=== PATIENT | male | born 1950 | race African-American/Black ===

== ENCOUNTER → 2016-05-19 | Outpatient (CLI) | payer OTHER ==
[~2016-05-19] MED LIST: ASPIRIN 81M81 MG/TA2 PO; BYSTOLIC10 MG PO; FLONASE NASAL S16 GM NS; HYGROTON50 MG PO; HYTRIN 2MG CAPSU2 MG PO; LANTUS SOLOS100 U/ML SQ; LIPITOR 40MG TA40 MG PO; LIPITOR20 MG PO; LOTREL 10 MG-401 CAP PO; MICARDIS HCT 121 TA1 PO; NATURE'S BLEN2000 IU PO; NOVOLOG FLEX100 U/ML SQ; PROAIR HFA0.09 MG/AC IH; TESSALON P100 MG/CAP PO; TRICOR145 MG PO; ULTRAM 50MG TAB50 MG PO; VITAMIN D 50,1.25 MG PO; ZOLOFT 50MG50 MG PO; ZYRTEC 10MG10 MG PO
== END ==
LOC: COL.PUL 11:20
DX: R06.02 Shortness of breath (principal)

== ENCOUNTER → 2016-06-18 | Outpatient (CLI) | payer OTHER | LOC: COL.PUL 10:07 | DX: R06.02 Shortness of breath (principal) | CPT/HCPCS: J7674 ==

== ENCOUNTER 2016-08-10 07:24 | Day surgery (SDC) | payer OTHER ==
[~2016-08-10] VITALS: Ht 182.9 cm; Wt 120.3 kg
[2016-08-10] MEDS ORDERED: ULTRAM 50MG TAB50 MG PO (08:48)
[2016-08-10] MEDS ORDERED: LIPITOR20 MG PO (08:49)
[2016-08-10] MEDS ORDERED: ZOLOFT 50MG50 MG PO (08:49)
[2016-08-10] MEDS ORDERED: NATURE'S BLEN2000 IU PO (08:50)
[2016-08-10] MEDS ORDERED: LOTREL 10 MG-401 CAP PO (08:51)
[2016-08-10] MEDS ORDERED: HYGROTON50 MG PO (08:51)
[2016-08-10] MEDS ORDERED: BYSTOLIC10 MG PO (08:52)
[2016-08-10] MEDS ORDERED: HYTRIN 2MG CAPSU2 MG PO (08:53)
[2016-08-10] MEDS ORDERED: LANTUS SOLOS100 U/ML SQ (08:54)
[2016-08-10] MEDS ORDERED: ASPIRIN 81M81 MG/TA2 PO (08:55)
[2016-08-10] MEDS ORDERED: FLONASE NASAL S16 GM NS (08:55)
[2016-08-10] MEDS ORDERED: PROAIR HFA0.09 MG/AC IH (08:55)
[2016-08-10] MEDS ORDERED: MICARDIS HCT 121 TA1 PO (08:59)
[2016-08-10] MEDS ORDERED: LIPITOR 40MG TA40 MG PO (08:59)
[2016-08-10] MEDS ORDERED: NOVOLOG FLEX100 U/ML SQ (09:00)
[2016-08-10] MEDS ORDERED: TESSALON P100 MG/CAP PO (09:01)
[2016-08-10] MEDS ORDERED: ZYRTEC 10MG10 MG PO (09:01)
[2016-08-10] MEDS ORDERED: VITAMIN D 50,1.25 MG PO (09:02)
[2016-08-10] MEDS ORDERED: TRICOR145 MG PO (09:04)
[2016-08-10 10:00] VITALS: BP 100/49; PULSE 62
[2016-08-10 10:15] VITALS: BP 116/51; PULSE 68
[2016-08-10 11:03] VITALS: BP 166/73; PULSE 59; TEMP 97.5
[2016-08-10 13:46] LABS: BRONCH WASH FLUID MONONUCLEAR 97 % (0-75); BRONCH WASH POLY - PMN 3 % (0-25)
[2016-09-21 09:15] LABS: MIC AGAR DILUTION XXX
== END 2016-08-10 10:27 | disposition home or self-care (01) ==
LOC: SDCO 07:24
PROVIDERS: Internal Medicine Pulmonary Disease
DX: R06.02 Shortness of breath (principal); R05 Cough; R93.8 Abnormal findings on diagnostic imaging of other specified body structures
CPT/HCPCS: J2704; J7030

== ENCOUNTER 2017-05-24 10:15 | Outpatient (RCR) | payer MEDICARE, OTHER | END 2017-05-30 10:48 | disposition home or self-care (01) | LOC: WSPT 10:15 | DX: M25.562 Pain in left knee (principal); M25.561 Pain in right knee | CPT/HCPCS: G8978-GP; G8979-GP; G8980-GP ==

== ENCOUNTER 2017-09-01 12:00 | Outpatient (RCR) | payer MEDICARE, OTHER | END 2017-09-04 | disposition home or self-care (01) | LOC: WSPT | DX: M25.562 Pain in left knee (principal); M25.561 Pain in right knee; M54.9 Dorsalgia, unspecified; G89.29 Other chronic pain | CPT/HCPCS: G8978-GP; G8979-GP ==

== ENCOUNTER 2017-11-03 12:00 | Outpatient (RCR) | payer MEDICARE, OTHER | END 2017-11-07 08:11 | disposition home or self-care (01) | LOC: WSPT 12:00 | DX: M17.0 Bilateral primary osteoarthritis of knee (principal); M54.5 Low back pain; G89.29 Other chronic pain | CPT/HCPCS: G8978-GP; G8979-GP; G8980-GP ==

== ENCOUNTER 2018-08-09 13:00 | Outpatient (RCR) | payer MEDICARE, OTHER | END 2018-08-13 | disposition home or self-care (01) | LOC: MKS.ESL.PT | DX: M54.5 Low back pain (principal); M25.562 Pain in left knee; M25.561 Pain in right knee; G89.29 Other chronic pain ==

== ENCOUNTER 2018-11-01 13:45 | Outpatient (RCR) | payer MEDICARE, OTHER | END 2018-11-01 14:30 | disposition home or self-care (01) | LOC: MKS.ESL.PT | DX: M54.5 Low back pain (principal); M25.561 Pain in right knee; M25.562 Pain in left knee; G89.29 Other chronic pain ==

== ENCOUNTER 2019-02-14 13:00 | Outpatient (RCR) | payer MEDICARE, OTHER | END 2019-02-20 | disposition still patient (30) | LOC: MKS.ESL.PT | DX: G89.29 Other chronic pain (principal); M54.9 Dorsalgia, unspecified; M25.562 Pain in left knee; M25.561 Pain in right knee ==

== ENCOUNTER 2019-02-21 08:00 | Outpatient (RCR) | payer MEDICARE, OTHER | END 2019-03-15 14:53 | disposition home or self-care (01) | LOC: MKS.ESL.PT 08:00 | DX: M25.569 Pain in unspecified knee (principal); M54.9 Dorsalgia, unspecified ==

== ENCOUNTER → 2019-12-13 | Outpatient (CLI) | payer MEDICARE, OTHER | LOC: COL.RAD 08:00 | DX: M48.061 Spinal stenosis, lumbar region without neurogenic claudication (principal); M47.816 Spondylosis without myelopathy or radiculopathy, lumbar region; M51.36 Other intervertebral disc degeneration, lumbar region ==

== ENCOUNTER → 2022-01-29 | Outpatient (CLI) | payer MEDICARE, OTHER | LOC: COL.RAD 08:52 | DX: C61 Malignant neoplasm of prostate (principal) | CPT/HCPCS: A9503 ==

== ENCOUNTER 2023-02-12 05:04 | Inpatient (IN) | payer MEDICARE, OTHER ==
[~2023-02-12] VITALS: Ht 182.9 cm; Wt 107.9 kg
[2023-02-12] VITALS (17 sets, daily range): BP systolic 142–178; BP diastolic 53–84; PULSE 63–89; TEMP 97.6–98.6
[~2023-02-12 05:04] MED LIST changes: +APRESOLINE50 MG PO; +ATHLETE'S FOOT1% TP; +COMBIGAN 0.2%-0.5 ML OU; +CRESTOR40 MG PO; +DEMADEX100 MG PO; +DOXYCYCLINE 10100 MG PO; +FLOMAX 0.40.4 MG/CAP PO; +JARDIANCE25 PO; +NORMODYNE200 MG PO; +ROCKLATAN 0.022.5 ML OP; +TRICOR 48MG48 MG PO; +ZOFRAN ODT4 MG PO
[2023-02-12 05:20] LABS: BASO % 0.3 % (0.0-2.0); EOS # 0.2 K/mm3 (0.0-0.7); GRAN # 5.2 K/mm3 (1.4-6.5); GRAN % 77.2 % (42.2-75.2); LYMPH # 0.7 K/mm3 (1.2-3.4); LYMPH % 10.9 % (20.0-51.0); MEAN CELL VOLUME 95 fl (80.0-100.0); MEAN CORPUSCULAR HGB CONC 32 g/dl (33.0-37.0); MONO # 0.6 K/mm3 (0.1-0.6); MONO % 8.2 % (1.7-9.3); PLATELET COUNT 260 K/mm3 (130-400); REDCELL DISTRIBUTION WIDTH-CV 13.4 % (11.5-14.5)
[2023-02-12 05:39] LABS: ALBUMIN 3.6 gm/dL (3.4-4.8); BILIRUBIN,TOTAL 0.3 mg/dL (0.2-1.2); CREATININE, serum 5.6 mg/dL (0.72-1.25); POTASSIUM 4.6 mmol/L (3.5-4.5); TOTAL PROTEIN 8.4 gm/dL (6.2-8.1)
[2023-02-12 05:44] LABS: HEMATOCRIT 24.7 % (42.0-52.0); HEMOGLOBIN 7.9 g/dl (13.5-18.0); MEAN CORPUSCULAR HEMOGLOBIN 30 pg (27-31); TROPONIN-I 0.03 ng/mL (0.00-0.033)
[2023-02-12 06:03] LABS: INR 1.1 (0.8-3.0); PROTHROMBIN TIME 12.1 SECONDS (9.7-12.8)
--- NOTE | 2023-02-12 09:00 | NUR ---
PT ADMITTED FROM ED WITH SOB AND ANEMIA. PT ABMULATED TO RESTROOM AND THEN TO BED. PT HAS BLOOD RUNNING THRU LEFT AC IV. PT IS AXOX3. PT IS ON RA SATING WELL. PT ORIENTED TO ROOM AND FLOOR. ADMISSION AND ASSESSMENT COMPLETED. NOTIFIED OF ARRIVAL. PT GIVEN CALL LIGHT AND INSTRUCTED TO CALL WITH ALL NEEDS.
--- NOTE | 2023-02-12 09:00 | NUR ---
PT ADMITTED FROM ER WITH SOB AND ANEMIA. PT HAS BLOOD RUNNING AT 90ML/HR THRU LEFT AC IV. RATE INCREASED TO 125ML/HR. PT IS AXOX3. PT SATING WELL ON RA. PT AMBULATED TO THE RESTROOM. PT ORIENTED TO ROOM AND FLOOR. PT INSTRUCTED TO CALL WITH ALL NEEDS, AND CALL LIGHT GIVEN. ADMISSION COMPLETED. PT INSTRUCTED TO CALL WITH ALL NEEDS.
--- NOTE | 2023-02-12 11:58 | NUR ---
Pharmacy Intake Technician rounds: Chaplain walters for Patient and his visitor Aleyda.
[2023-02-12 14:11] LABS: HEMATOCRIT 24.4 % (42.0-52.0)
--- NOTE | 2023-02-12 18:30 | NUR ---
Bedside report received from BRIA Herrera. pt is currently sitting on side of bed talking on telephone. Pt has no complaints at this time. Call light within reach.
[2023-02-13] VITALS (11 sets, daily range): BP systolic 138–170; BP diastolic 50–69; PULSE 67–80; TEMP 97.3–98.1
--- NOTE | 2023-02-13 05:38 | NUR ---
Pt has been in a pleasant mood this shift. Shift assessment completed. VSS. 2L O2 by NC. Telmetry in place. Pt did request a snack, this nurse provided pudding to patient. Pt slept through the night during this shift. Pt has no complaints at this time. call light within reach.
[2023-02-13 05:51] LABS: CALCIUM 8.6 mg/dL (8.4-10.2); CREATININE, serum 5.94 mg/dL (0.72-1.25); POTASSIUM 4.8 mmol/L (3.5-4.5)
[2023-02-13 06:59] LABS: BASO % 0.3 % (0.0-2.0); EOS # 0.2 K/mm3 (0.0-0.7); EOS % 2.5 % (0.0-4.0); GRAN # 4.5 K/mm3 (1.4-6.5); GRAN % 75.3 % (42.2-75.2); LYMPH # 0.7 K/mm3 (1.2-3.4); LYMPH % 11.4 % (20.0-51.0); MEAN CELL VOLUME 92 fl (80.0-100.0); MEAN CORPUSCULAR HGB CONC 32 g/dl (33.0-37.0); MEAN PLATELET VOLUME 10.1 fl (7.4-10.4); MONO # 0.6 K/mm3 (0.1-0.6); MONO % 9.8 % (1.7-9.3); PLATELET COUNT 226 K/mm3 (130-400); RED BLOOD COUNT 2.55 M/mm3 (4.20-5.60); REDCELL DISTRIBUTION WIDTH-CV 15.5 % (11.5-14.5)
--- NOTE | 2023-02-13 07:00 | NUR ---
PT RESTING IN BED. PT IS ON RA AT THIS TIME. PT IS SR ON TELE. PT IS AXOX3. SON BEDSIDE. PT HAS CALL LIGHT AND INSTRUCTED TO CALL WITH ALL NEEDS. 0830-PT REQUESTING TO SHOWER. TELE REMOVED AND IV COVERED. PT INSTRUCTED TO CALL WHEN DONE TO RECONNECT TELE.
[2023-02-13 07:01] LABS: HEMATOCRIT 23.4 % (42.0-52.0); HEMOGLOBIN 7.5 g/dl (13.5-18.0); MEAN CORPUSCULAR HEMOGLOBIN 29 pg (27-31)
--- NOTE | 2023-02-13 10:12 | NUR ---
Mall Manager met with patient to discuss discharge planning. Patient lives in [place] with his , Aleyda (ph#[phone]) who is at bedside. Patient goes to the [place] for primary care and medications. Patient uses a CPAP at home and also has both a cane and walker available as needed. Patient does report some difficulties with ADLS and that his , Aleyda assists him as needed. Patient denies any current or past Home Health services but reports he may need some soon. LUCY discussed DPOA-HC with patient and he was interested in completing one. SW assisted patient in completing the DPOA-HC form and patient chose to designate his , Aleyda and son, Aniceto. LUCY and RNJavier provided witness signatures. LUCY provided original and copies to patient, then placed copy in chart. Patient advised he plans to return home at time of discharge. Discharge Plan: Home
--- NOTE | 2023-02-13 20:00 | NUR ---
PATIENT IS A&O. VSS ON TELE. NO C/O CHEST PAIN OR SOA. TOLERATING ADA DIET. HS BS WAS 201, SSI GIVEN WITH HS MEDS. ALSO GAVE PRN TYLENOL FOR BACK PAIN BEFORE BED. LEFT AC IV TO INT. HEAD TO TOE ASSESSMENT COMPLETE. CALL LIGHT IN REACH. NO OTHER NEEDS AT THIS TIME.
[2023-02-14] VITALS (12 sets, daily range): BP systolic 126–161; BP diastolic 58–74; PULSE 63–78; TEMP 97.2–97.5
[2023-02-14 06:12] LABS: BASO % 0.6 % (0.0-2.0); EOS # 0.1 K/mm3 (0.0-0.7); EOS % 2.7 % (0.0-4.0); GRAN # 3.9 K/mm3 (1.4-6.5); GRAN % 75.5 % (42.2-75.2); LYMPH # 0.5 K/mm3 (1.2-3.4); LYMPH % 10.4 % (20.0-51.0); MEAN CELL VOLUME 94 fl (80.0-100.0); MEAN CORPUSCULAR HGB CONC 31 g/dl (33.0-37.0); MEAN PLATELET VOLUME 10.2 fl (7.4-10.4); MONO # 0.5 K/mm3 (0.1-0.6); MONO % 10.4 % (1.7-9.3); PLATELET COUNT 228 K/mm3 (130-400); RED BLOOD COUNT 2.56 M/mm3 (4.20-5.60); REDCELL DISTRIBUTION WIDTH-CV 15.5 % (11.5-14.5)
[2023-02-14 06:15] LABS: HEMOGLOBIN 7.5 g/dl (13.5-18.0); MEAN CORPUSCULAR HEMOGLOBIN 29 pg (27-31)
[2023-02-14 06:41] LABS: CALCIUM 8.6 mg/dL (8.4-10.2); CREATININE, serum 6.53 mg/dL (0.72-1.25); POTASSIUM 4.7 mmol/L (3.5-4.5)
--- NOTE | 2023-02-14 07:00 | NUR ---
Pt sitting side of bed. Pt is AxOx3. Pt is on RA. Pt is SR on tele. Pt has call light and instructed to call with all needs. 0725-Pt's BG 54. Pt is AxOx4. Pt is asymptamatic. Pt ordering breakfast. Juice given.
[2023-02-14] MEDS ORDERED: NORVASC 10MG10 MG PO (09:11)
--- NOTE | 2023-02-14 20:00 | NUR ---
PATIENT IS A&O. NOTED ELEVATED B/P OF 161/59, HS B/P MEDS GIVEN. NO C/O CHEST PAIN. PATIENT IS C/O FEEL SOA. NOTED LABBORED BREATHING AT REST. PATIENT SITTING AT BEDSIDE WITH 02 @ 2L WITH SATS IN MID 90'S. NOTED NON-PRODUCTIVE COUGH. RT CALLED FOR TREATMENT. TOLERATING ADA DIET. PATIENT REQUESTING PRN TYLENOL FOR BACK PAIN, GIVEN. GAVE PRN TYLENOL FOR BACK PAIN BEFORE BED. LEFT AC IV TO INT. HEAD TO TOE ASSESSMENT COMPLETE. SCD'S CURRENTLY OFF. CALL LIGHT IN REACH. NO OTHER NEEDS AT THIS TIME.
[2023-02-15] VITALS (12 sets, daily range): BP systolic 17–188; BP diastolic 61–85; PULSE 67–74; TEMP 97.3–99.7
[2023-02-15 10:34] LABS: BASO % 0.7 % (0.0-2.0); EOS # 0.1 K/mm3 (0.0-0.7); EOS % 2.2 % (0.0-4.0); GRAN # 4.7 K/mm3 (1.4-6.5); GRAN % 80.6 % (42.2-75.2); LYMPH # 0.4 K/mm3 (1.2-3.4); LYMPH % 6.7 % (20.0-51.0); MEAN CELL VOLUME 93 fl (80.0-100.0); MEAN CORPUSCULAR HGB CONC 32 g/dl (33.0-37.0); MEAN PLATELET VOLUME 9.9 fl (7.4-10.4); MONO # 0.5 K/mm3 (0.1-0.6); MONO % 8.9 % (1.7-9.3); PLATELET COUNT 220 K/mm3 (130-400); RED BLOOD COUNT 2.55 M/mm3 (4.20-5.60); REDCELL DISTRIBUTION WIDTH-CV 15.4 % (11.5-14.5)
[2023-02-15 10:36] LABS: HEMATOCRIT 23.7 % (42.0-52.0); HEMOGLOBIN 7.6 g/dl (13.5-18.0); MEAN CORPUSCULAR HEMOGLOBIN 30 pg (27-31)
[2023-02-15 10:53] LABS: CALCIUM 8.6 mg/dL (8.4-10.2); CREATININE, serum 6.26 mg/dL (0.72-1.25)
--- NOTE | 2023-02-15 14:09 | NUR ---
Initial visit: Hub Bander stopped by room on rounds. Pt was resting and content with son in the room. Pt has no needs right now. Hub Bander will follow up as needed.
--- NOTE | 2023-02-15 22:30 | NUR ---
Patient assessed around 2114. Alert and oriented, and able to make needs known. Denies having pain and discomfort. Denies SOB and dyspnea. LS CTA. On room air. Reports scant amount of green, thick sputum production this morning. Reports breathing is much better. Continues on IV ABX per orders. Voices no questions, needs, or concerns at this time. In bed with call light within reach.
[2023-02-16 00:04] VITALS: BP_SYST 188
[2023-02-16 03:21] VITALS: BP 161/73; PULSE 78; TEMP 97.5
[2023-02-16 04:58] VITALS: BP_SYST 161
[2023-02-16 05:10] LABS: BASO % 0.5 % (0.0-2.0); EOS # 0.1 K/mm3 (0.0-0.7); EOS % 2.2 % (0.0-4.0); GRAN # 4.6 K/mm3 (1.4-6.5); GRAN % 79.5 % (42.2-75.2); LYMPH # 0.5 K/mm3 (1.2-3.4); LYMPH % 7.7 % (20.0-51.0); MEAN CELL VOLUME 91 fl (80.0-100.0); MEAN CORPUSCULAR HGB CONC 32 g/dl (33.0-37.0); MEAN PLATELET VOLUME 10.2 fl (7.4-10.4); MONO # 0.6 K/mm3 (0.1-0.6); MONO % 9.4 % (1.7-9.3); PLATELET COUNT 220 K/mm3 (130-400); RED BLOOD COUNT 2.57 M/mm3 (4.20-5.60); REDCELL DISTRIBUTION WIDTH-CV 15.2 % (11.5-14.5)
[2023-02-16 05:21] LABS: HEMATOCRIT 23.5 % (42.0-52.0); HEMOGLOBIN 7.5 g/dl (13.5-18.0); MEAN CORPUSCULAR HEMOGLOBIN 29 pg (27-31)
--- NOTE | 2023-02-16 05:28 | NUR ---
Remains on room air. Continues on IV ABX per orders. Voices no questions, needs, or concerns at this time. In bed with call light within reach.
[2023-02-16 05:40] LABS: CALCIUM 8.6 mg/dL (8.4-10.2); CREATININE, serum 6.01 mg/dL (0.72-1.25); POTASSIUM 4.7 mmol/L (3.5-4.5)
[2023-02-16 07:37] VITALS: BP 179/76; PULSE 76; TEMP 96.8
[2023-02-16 07:53] VITALS: BP 167/74; PULSE 74; TEMP 97.3
[2023-02-16] MEDS ORDERED: CATAPRES0.2 MG PO (08:35)
[2023-02-16] MEDS ORDERED: NORMODYNE200 MG PO (08:36)
[2023-02-16] MEDS ORDERED: SODIUM BICARBO650 MG PO (08:36)
[2023-02-16] MEDS ORDERED: AMOXICILLIN/CLA1 TA1 PO (08:37)
[2023-02-16 08:57] VITALS: BP_SYST 167
--- NOTE | 2023-02-16 08:58 | NUR ---
Patient awake, alert and oriented. Denies pain, shortness of breath or nausea. In bed in the lowest position, call light within reach. Steady on feet on ambulation. Denies additional needs at this time.
--- NOTE | 2023-02-16 10:16 | NUR ---
Cardiac Rehab Note: Discussed appropriateness of heart failure teaching with Renetta butt maker. Informed that this patient's admission and diagnosis was not heart failure, so plan to defer heart failure teaching at this time.
--- NOTE | 2023-02-16 10:29 | NUR ---
Initial visit; Patient thanked Home Health Clinician for looking in on him and offering God's blessings. Patient preparing to be discharged and wished Home Health Clinician a "good day."
--- NOTE | 2023-02-16 10:29 | NUR ---
Patient discharged to home, picked up by son. Educated on discharge instructions, follow up appointments, and new medications. Pt verbalized understanding. vehicle monitor technician and IV removed prior to discharge. Assisted to the car by nursing staff.
== END 2023-02-16 10:00 | disposition home or self-care (01) | DRG 682 ==
LOC: COL.ER 05:04 → MEDICAL 06:41
PROVIDERS: Emergency Medicine; Physician Assistant; ADMIT Hospitalist
DX: I12.0 Hypertensive chronic kidney disease with stage 5 chronic kidney disease or end stage renal disease (principal); J18.9 Pneumonia, unspecified organism; J96.01 Acute respiratory failure with hypoxia; N18.5 Chronic kidney disease, stage 5; Z11.52 Encounter for screening for COVID-19; E11.22 Type 2 diabetes mellitus with diabetic chronic kidney disease; I50.9 Heart failure, unspecified; D63.1 Anemia in chronic kidney disease; Z79.4 Long term (current) use of insulin; C61 Malignant neoplasm of prostate
CPT/HCPCS: G0378; J1815; J1940; J2543; P9016; Q5106

== ENCOUNTER 2023-02-16 22:18 | Inpatient (IN) | payer MEDICARE, OTHER ==
[~2023-02-16] VITALS: Ht 182.9 cm; Wt 124.0 kg
[~2023-02-16 22:18] MED LIST changes: +AMOXICILLIN/CLA1 TA1 PO; +CATAPRES0.2 MG PO; +NORVASC 10MG10 MG PO; +SODIUM BICARBO650 MG PO
[2023-02-16 22:51] LABS: ARTERIAL BLD GAS O2 SATURATION 91.2 % (92-100); ARTERIAL BLD GAS TCO2 CT 20.3; ARTERIAL BLOOD GAS HCO3 19.2 meq/L (22-26); ARTERIAL BLOOD GAS PCO2 36.4 mmHg (35-45); ARTERIAL BLOOD GAS PO2 65.3 mmHg (80-100); ARTERIAL BLOOD GAS pH 7.34 (7.35-7.45)
[2023-02-16 22:51] LABS: BASO % 0.5 % (0.0-2.0); EOS # 0.1 K/mm3 (0.0-0.7); GRAN # 5.2 K/mm3 (1.4-6.5); GRAN % 81.6 % (42.2-75.2); LYMPH # 0.5 K/mm3 (1.2-3.4); LYMPH % 7.4 % (20.0-51.0); MEAN CELL VOLUME 94 fl (80.0-100.0); MEAN CORPUSCULAR HGB CONC 32 g/dl (33.0-37.0); MEAN PLATELET VOLUME 10.2 fl (7.4-10.4); MONO # 0.5 K/mm3 (0.1-0.6); MONO % 7.4 % (1.7-9.3); PLATELET COUNT 241 K/mm3 (130-400); RED BLOOD COUNT 2.81 M/mm3 (4.20-5.60); REDCELL DISTRIBUTION WIDTH-CV 15.1 % (11.5-14.5)
[2023-02-16 22:54] LABS: HEMATOCRIT 26.5 % (42.0-52.0); HEMOGLOBIN 8.4 g/dl (13.5-18.0); MEAN CORPUSCULAR HEMOGLOBIN 30 pg (27-31)
[2023-02-16 23:03] LABS: ALBUMIN 3.5 gm/dL (3.4-4.8); BILIRUBIN,TOTAL 0.4 mg/dL (0.2-1.2); CREATININE, serum 6.16 mg/dL (0.72-1.25); POTASSIUM 4.7 mmol/L (3.5-4.5); TOTAL PROTEIN 8.4 gm/dL (6.2-8.1)
[2023-02-16 23:09] LABS: TROPONIN-I 0.02 ng/mL (0.00-0.033)
[2023-02-16 23:35] LABS: COLLECTION METHOD CLEAN CATCH
[2023-02-17] VITALS (8 sets, daily range): BP systolic 148–182; BP diastolic 62–84; PULSE 76–83; TEMP 97.4–98.4
[2023-02-17 00:07] LABS: URINE APPEARANCE Clear (CLEAR/HAZY); URINE BLOOD 1+ (NEGATIVE); URINE COLOR Yellow (YELLOW); URINE GLUCOSE 2+ (NEGATIVE); URINE KETONE Negative (NEGATIVE); URINE NITRATE Negative (NEGATIVE); URINE PROTEIN(semi-quant) 3+ (NEGATIVE); URINE UROBILINOGEN 0.2 E.U/dL (0.2-1.0)
[2023-02-17 00:08] LABS: URINE BACTERIA None Seen /hpf (NONE SEEN)
--- NOTE | 2023-02-17 03:45 | NUR ---
DARION WAS ADMITTED TO ROOM 357 FROM ED WITH NC O2 AT 4L, NO TELE AND DISPLAYING DYSPNEA ON EXERTION. VSS WERE- 169/78, 81 PULSE, 97.4 TEMP, 99% O2. FALL RISK SIGN, GOWN AND WRISTBAND WERE PLACED, BED ALARM SET AND PATIENT ORIENTED TO ROOM. CALL LIGHT WITHIN REACH.
--- NOTE | 2023-02-17 05:54 | NUR ---
DARION FELL WHILE IN THE EMERGENCY ROOM ONTO HIS TAILBONE AND C/O 6/ "SORE" PAIN. PRN TYLENOL ADMINISTERED.
--- NOTE | 2023-02-17 13:54 | NUR ---
Terminal Operator met with patient who is known to her as he was recently admitted to this facility. Patient was discharged from this facility yesterday and presented to the ED later in the evening. Patient advised when he got home he experienced shortness of breathe with walking. Patient lives in [place] with his , Aleyda. Patient goes to the [facility] for primary care and medications. Patient advised he is on the Red team. Patient has a rollator which is at bedside. Patient also has a cane available at home and uses a home CPAP. Patient does not have home oxygen set up, but is currently wearing it. Patient completed DPOA-HC during his last admission designating his and son. A copy had been placed on the chart. SW discussed Home Health services and provided Medicare.gov list of HH agencies. Patient is interested in services and will review it with his . Discharge Plan: Home, possible HH
--- NOTE | 2023-02-17 20:00 | NUR ---
Assessment complete. A&Ox4. Denies pain/nausea. Short of breath with activity. Noted to have bilat crackles to all lung valdez. O2@3L/NC with adequate oxygenation. Has been upu to bathroom with stand by assist. Patient refusing walker adamantly. Fluid restriction enforced-remided patient that he is almost at max. Voiding without difficulty. Denies current needs. Call light in reach. Will monitor.
[2023-02-18] VITALS (7 sets, daily range): BP systolic 133–157; BP diastolic 65–72; PULSE 67–72; TEMP 97.7–98.3
--- NOTE | 2023-02-18 04:13 | NUR ---
Report received from PCT that patient has been filling up his water cup out of the sink off and on this shift. This nurse discussed fluid restriction with patient. Patient states "Ill just fill it up myself then."
[2023-02-18 05:19] LABS: BASO % 0.5 % (0.0-2.0); GRAN # 4.8 K/mm3 (1.4-6.5); LYMPH # 0.4 K/mm3 (1.2-3.4); LYMPH % 7.4 % (20.0-51.0); MEAN CELL VOLUME 93 fl (80.0-100.0); MEAN CORPUSCULAR HGB CONC 32 g/dl (33.0-37.0); MEAN PLATELET VOLUME 10.3 fl (7.4-10.4); MONO # 0.5 K/mm3 (0.1-0.6); MONO % 7.9 % (1.7-9.3); PLATELET COUNT 218 K/mm3 (130-400); RED BLOOD COUNT 2.44 M/mm3 (4.20-5.60); REDCELL DISTRIBUTION WIDTH-CV 15.2 % (11.5-14.5)
[2023-02-18 05:22] LABS: HEMATOCRIT 22.6 % (42.0-52.0); HEMOGLOBIN 7.3 g/dl (13.5-18.0); MEAN CORPUSCULAR HEMOGLOBIN 30 pg (27-31)
[2023-02-18 05:38] LABS: ALBUMIN 3.2 gm/dL (3.4-4.8); CALCIUM 8.7 mg/dL (8.4-10.2); CREATININE, serum 5.52 mg/dL (0.72-1.25); MAGNESIUM 2.3 mg/dL (1.6-2.6); PHOSPHOROUS 5.3 mg/dL (2.3-4.7); POTASSIUM 4.6 mmol/L (3.5-4.5)
--- NOTE | 2023-02-18 09:30 | NUR ---
PT AWAKE AND SITTING ON SIDE OF BED EATING BREAKFAST UPON ENTERING. ASSESSMENT DONE. PT REPORTS LOWER BACK PAIN WITH MOVEMENT RELATED TO FALL IN THE ER AND, GIVEN PRN TYLENOL. RESPIRATORY THERAPY AT BEDSIDE AND PT ROOM AIR WITH SATS > 92% PER RESPIRATORY. PT DENIES NEEDS AT THIS TIME. BED IN LOWEST POSITION, CALL LIGHT IN REACH
[2023-02-18] MEDS ORDERED: VELTASSA8.4 GM PO ×3 (13:53→16:29)
[2023-02-18] MEDS ORDERED: RENVELA800 MG PO ×3 (13:54→16:29)
--- NOTE | 2023-02-18 14:08 | NUR ---
Bait Maker met with patient to follow up on Home Health services. Patient stated he did not want to set anything up at this time, but might call SW later when he gets home. SW advised patient that he [facility].
--- NOTE | 2023-02-18 16:40 | NUR ---
PT DRESSED IN PERSONAL CLOTHES AND IV DISCONTINUED. MEDS GIVEN PER ORDER AND DISCHARGE INSTRUCTIONS GIVEN, PT VERBALIZED UNDERSTANDING. PT DENIES NEEDS AT THIS TIME. PT ESCORTED TO PERSONAL VEHICLE VIA WHEELCHAIR ESCORTED BY STAFF.
== END 2023-02-18 16:50 | disposition home or self-care (01) | DRG 189 ==
LOC: COL.ER 22:18 → MEDICAL 02-17 00:55
PROVIDERS: Emergency Medicine; Physician Assistant; ADMIT Internal Medicine
DX: J96.21 Acute and chronic respiratory failure with hypoxia (principal); J18.9 Pneumonia, unspecified organism; I13.2 Hypertensive heart and chronic kidney disease with heart failure and with stage 5 chronic kidney disease, or end stage renal disease; N18.5 Chronic kidney disease, stage 5; I50.32 Chronic diastolic (congestive) heart failure; E87.20 Acidosis, unspecified; E78.5 Hyperlipidemia, unspecified; E87.5 Hyperkalemia; E11.22 Type 2 diabetes mellitus with diabetic chronic kidney disease; E83.39 Other disorders of phosphorus metabolism; D63.1 Anemia in chronic kidney disease; Z85.46 Personal history of malignant neoplasm of prostate; Z23 Encounter for immunization; Z88.8 Allergy status to other drugs, medicaments and biological substances; Z87.01 Personal history of pneumonia (recurrent); Z90.89 Acquired absence of other organs; Z79.4 Long term (current) use of insulin; Z79.899 Other long term (current) drug therapy; Z79.82 Long term (current) use of aspirin
CPT/HCPCS: A9270; J1644; J1815; J7512; Q3014

== ENCOUNTER 2023-06-12 17:34 | Emergency (ER) | payer MEDICARE, OTHER ==
[~2023-06-12] VITALS: Ht 182.9 cm; Wt 129.5 kg
[~2023-06-12 17:34] MED LIST changes: +RENVELA800 MG PO; +VELTASSA8.4 GM PO
[2023-06-12 17:39] VITALS: TEMP 97.6
[2023-06-12] MEDS ORDERED: Albuterol 0.083% Neb Soln 2.5 MG/3 ML UD IH ONE (18:15)
[2023-06-12 18:40] LABS: BASO # 0.1 K/mm3 (0.0-0.2); BASO % 0.8 % (0.0-2.0); EOS # 0.6 K/mm3 (0.0-0.7); EOS % 9.4 % (0.0-4.0); GRAN # 4.6 K/mm3 (1.4-6.5); GRAN % 73.5 % (42.2-75.2); LYMPH # 0.6 K/mm3 (1.2-3.4); LYMPH % 8.8 % (20.0-51.0); MEAN CELL VOLUME 99 fl (80.0-100.0); MEAN CORPUSCULAR HGB CONC 31 g/dl (33.0-37.0); MEAN PLATELET VOLUME 10.2 fl (7.4-10.4); MONO # 0.5 K/mm3 (0.1-0.6); MONO % 7.2 % (1.7-9.3); PLATELET COUNT 262 K/mm3 (130-400); REDCELL DISTRIBUTION WIDTH-CV 14.4 % (11.5-14.5)
[2023-06-12 18:42] LABS: HEMATOCRIT 25.8 % (42.0-52.0); MEAN CORPUSCULAR HEMOGLOBIN 31 pg (27-31)
[2023-06-12 18:53] LABS: INR 1.1 (0.8-3.0)
[2023-06-12 18:54] LABS: ALBUMIN 3.2 gm/dL (3.4-4.8); BILIRUBIN,TOTAL 0.3 mg/dL (0.2-1.2); CALCIUM 9.1 mg/dL (8.4-10.2); CREATININE, serum 4.92 mg/dL (0.72-1.25); POTASSIUM 4.4 mmol/L (3.5-4.5); TOTAL PROTEIN 7.7 gm/dL (6.2-8.1)
[2023-06-12 18:55] LABS: PARTIAL THROMBOPLASTIN TIME 30.7 SECONDS (26.0-37.0)
[2023-06-12 19:00] LABS: TROPONIN-I 0.014 ng/mL (0.00-0.033)
[2023-06-12] MEDS ORDERED: PROVENTIL0.09 MG/A1 IH (21:13)
[2023-06-12 21:20] VITALS: BP 170/78; PULSE 74
== END 2023-06-12 21:20 | disposition home or self-care (01) ==
LOC: COL.ER 17:34
PROVIDERS: Internal Medicine
DX: I13.2 Hypertensive heart and chronic kidney disease with heart failure and with stage 5 chronic kidney disease, or end stage renal disease (principal); E11.22 Type 2 diabetes mellitus with diabetic chronic kidney disease; I50.9 Heart failure, unspecified; N18.5 Chronic kidney disease, stage 5; J20.9 Acute bronchitis, unspecified

== ENCOUNTER → 2023-08-12 | Day surgery (SDC) | payer MEDICARE, OTHER ==
[~2023-08-12] VITALS: Ht 182.9 cm; Wt 122.1 kg
[~2023-08-12] MED LIST changes: +CATAPRES 0.1MG0.1 MG PO; +DULCOLAX TAB5 MG PO; +LR 1,000 ML IV SCH; +Lidocaine PF 2% (20 MG/ML) 5 ML VIAL ONE; +MASON NATURAL2000 IU PO; +Ondansetron 4 MG/2 ML VIAL IV PRN; +PHOS LO PO; +PROVENTIL0.09 MG/A1 IH; +TRANDATE 200MG200 MG PO
[2023-08-12 10:24] VITALS: BP 151/70; PULSE 83; TEMP 98.4
[2023-08-12 11:15] VITALS: BP 110/68; PULSE 80; TEMP 98
[2023-08-12 11:30] VITALS: BP 138/71; PULSE 82; TEMP 98.1
--- NOTE | 2023-08-12 11:35 | NUR ---
1115: Pt arrived to room 5 - ambulated with standby assist to chair - vitals initiated and stable. Call light in reach. 1132: Pt verablizes understanding of discharge education 1135: Pt dressed self and ready for discharge, son at [facility]
--- NOTE | 2023-08-12 11:39 | NUR ---
Physician in room with the pt
== END ==
LOC: SDCO 09:11
DX: D12.2 Benign neoplasm of ascending colon (principal); K57.30 Diverticulosis of large intestine without perforation or abscess without bleeding; G47.33 Obstructive sleep apnea (adult) (pediatric); R19.5 Other fecal abnormalities; R11.2 Nausea with vomiting, unspecified; R14.0 Abdominal distension (gaseous); R10.9 Unspecified abdominal pain
CPT/HCPCS: J2704; J7120

== ENCOUNTER 2023-08-22 08:09 | Outpatient (CLI) | payer MEDICARE, OTHER ==
[~2023-08-22] VITALS: Ht 182.9 cm; Wt 124.6 kg
[~2023-08-22 08:09] MED LIST changes: -CATAPRES 0.1MG0.1 MG PO; -DULCOLAX TAB5 MG PO; -LR 1,000 ML IV SCH; -Lidocaine PF 2% (20 MG/ML) 5 ML VIAL ONE; -MASON NATURAL2000 IU PO; -Ondansetron 4 MG/2 ML VIAL IV PRN; -PHOS LO PO; -TRANDATE 200MG200 MG PO
[2023-08-22] MEDS ORDERED: Iron Sucrose 400 MG in NS 250 ML Over 150 minutes IV ONE (09:00)
[2023-08-22 09:41] VITALS: BP 149/72; PULSE 79; TEMP 97.7
[2023-08-22] MEDS ORDERED: DULCOLAX TAB5 MG PO (11:44)
[2023-08-22] MEDS ORDERED: PHOS LO PO (11:46)
[2023-08-22] MEDS ORDERED: MASON NATURAL2000 IU PO (11:47)
[2023-08-22] MEDS ORDERED: CATAPRES 0.1MG0.1 MG PO (11:48)
[2023-08-22] MEDS ORDERED: TRANDATE 200MG200 MG PO (11:58)
== END 2023-08-22 12:11 ==
LOC: EUO 08:09
DX: N18.4 Chronic kidney disease, stage 4 (severe) (principal); D63.1 Anemia in chronic kidney disease
CPT/HCPCS: J1756; J7050

== ENCOUNTER → 2023-09-14 | Day surgery (SDC) | payer MEDICARE, OTHER ==
[~2023-09-14] VITALS: Ht 182.9 cm; Wt 119.5 kg
[~2023-09-14] MED LIST changes: +CATAPRES 0.1MG0.1 MG PO; +D5 1/2 NS 1,000 ML IV SCH; +DULCOLAX TAB5 MG PO; +Famotidine 20 MG TAB PO SCH; +Lidocaine PF 2% (20 MG/ML) 5 ML VIAL IV ONE; +MASON NATURAL2000 IU PO; +PHOS LO PO; +Succinylcholine PF 200 MG/10 ML SYRINGE IV ONE; +TRANDATE 200MG200 MG PO; +Topical Skin Adhesive 1 EACH (1 ML) TOP ONE; +fentaNYL 50 MCG/ML 1 ML SYRINGE/VIAL [PACU/SDC ONLY] IV SCH; +fentaNYL 50 MCG/ML 2 ML VIAL IV ONE
[2023-09-14 10:06] LABS: CREATININE, serum 5.62 mg/dL (0.72-1.25)
[2023-09-19 11:52] VITALS: BP 141/64; PULSE 74; TEMP 97.4
--- NOTE | 2023-09-19 11:54 | NUR ---
DUE TO DOWNTIME, DOCUMENTATION ON EMR COMPLETED POST-CARE BY SAKINA CASTILLO RN; REFER TO SCANNED DOWNTIME PAPER DOCUMENTATION FOR FULL CARE DOCUMENTATION.
== END ==
LOC: SDCO 08:10
PROVIDERS: Nurse Anesthetist, Certified Registered
DX: I12.0 Hypertensive chronic kidney disease with stage 5 chronic kidney disease or end stage renal disease (principal); E11.22 Type 2 diabetes mellitus with diabetic chronic kidney disease; N18.5 Chronic kidney disease, stage 5; E66.9 Obesity, unspecified; G47.33 Obstructive sleep apnea (adult) (pediatric); Z68.37 Body mass index [BMI] 37.0-37.9, adult; Z79.4 Long term (current) use of insulin; Z79.899 Other long term (current) drug therapy
CPT/HCPCS: C1750; J0690; J2704; J3010